=== PATIENT | female | born 1955 | race Caucasian/White ===

== ENCOUNTER 2018-05-20 06:52 | Observation (INO) | payer OTHER ==
[2018-05-20] MEDS ORDERED: ENOXAPARIN SODIUM 40 MG/0.4 ML DISP.SYRIN SQ ONE ×2 (07:05→07:06)
[2018-05-20] MEDS ORDERED: fentaNYL CITRATE/PF 100 MCG/2 ML INJ. ONE ×3 (07:06→10:39)
[2018-05-20] MEDS ORDERED: ROCURONIUM BROMIDE 10 MG/ML 5ML VIAL ONE ×2 (07:06→08:48)
[2018-05-20] MEDS ORDERED: ceFAZolin SODIUM 1 GM VIAL ONE ×2 (07:06→08:48)
[2018-05-20] MEDS ORDERED: MIDAZOLAM HCL 2 MG/2 ML VIAL ONE ×2 (07:06→08:48)
[2018-05-20] MEDS ORDERED: NORMAL SALINE 1,000 ML IV.SOLN IV ONE ×2 (07:06→08:48)
[2018-05-20] MEDS ORDERED: LACTATED RINGERS 1,000 ML IV ONE (07:06)
[2018-05-20] MEDS ORDERED: LACTATED RINGERS 1,000 ML IV.SOLN IV ONE ×5 (07:06→08:48)
[2018-05-20] MEDS ORDERED: LIDOCAINE HCL 1% PF 300MG/30ML VIAL ONE ×2 (07:06→08:48)
[2018-05-20] MEDS ORDERED: PROPOFOL 200 MG/20 ML VIAL IV ONE ×2 (07:06→08:48)
[2018-05-20] MEDS ORDERED: SCOPOLAMINE HYDROBROMIDE 1.5MG/72HR PATCH TD ONE ×2 (07:06)
[2018-05-20] MEDS ORDERED: ONDANSETRON HCL/PF 4 MG/ 2ML VIAL ONE ×2 (07:06→08:48)
[2018-05-20] MEDS ORDERED: DEXAMETHASONE SOD PHOS 4 MG/ML VIAL ONE ×2 (07:06→08:48)
[2018-05-20] MEDS ORDERED: LIDOCAINE HCL 2% PF 100MG/5ML VIAL IJ ONE ×2 (07:06→08:48)
[2018-05-20] MEDS ORDERED: FAMOTIDINE 20 MG/2 ML VIAL ONE ×2 (07:06)
[2018-05-20] MEDS ORDERED: ACETAMINOPHEN 1,000 MG/100 ML INJ IV ONE ×2 (08:26→08:48)
[2018-05-20] MEDS ORDERED: FENTANYL CITRATE/PF 250 MCG/5 ML INJ. ONE (08:48)
[2018-05-20] MEDS ORDERED: SUGAMMADEX SODIUM 200 MG/2 ML VIAL IV ONE (08:48)
[2018-05-20] MEDS ORDERED: BUPIV. HCL 0.5% (5MG/ML)/EPI. (1:200,000) PF 30 ML VIAL IJ ONE (08:48)
[2018-05-20] MEDS ORDERED: SEVOFLURANE 250 ML LIQUID IH ONE (08:48)
[2018-05-20] MEDS ORDERED: ONDANSETRON HCL/PF 4 MG/ 2ML VIAL IVP PRN (11:25)
[2018-05-20] MEDS ORDERED: PROMETHAZINE HCL 25 MG in 0.9 % SODIUM CHLORIDE 50 ML IV PRN (11:25)
[2018-05-20] MEDS ORDERED: MORPHINE SULFATE 2 MG/ML VIAL IVP PRN (11:27)
[2018-05-20 11:59] VITALS: BMI 45.9
[2018-05-20] MEDS: HYDROcodone /APAP 5/325 1 EACH TABLET PO PRN ×2 (13:59→20:46)
[2018-05-20] MEDS: BUSPIRONE HCL 5 MG TABLET PO SCH ×2 (14:00→20:45)
--- NOTE | 2018-05-20 17:14 | History and Physical Report ---
History of Present Illnes - History of Present Illness Reason for Visit: S/P Gastric Band Removal History of Present Illness: Patient is a 62-year-old white female that had the Lap Band done in 2014. She states that she initially lost 60 pounds and then they started having trouble and eventually decided to remove the band. Patient states that she has put all of her weight back on and more. She admits to struggling with her diet and eating as she is suppose to. She is being monitored overnight in observation for treatment of pain, nausea, and making sure that she can tolerate PO meds and fluids. Patient tolerated procedure well with no complications. - Past Medical History Cardiac: HTN, Hyperlipidemia Pulmonary: Sleep Apnea Gastrointestinal: GERD Hepatobiliary: denies: Hep A/B/C Psych: Anxiety, Depression Musculoskeletal: Chronic low back pain Renal/: UTI Endocrine: Diabetes, obesity Grav: 5 Para: 3 Ab: 2 - Past Surgical History Past Surgical History: Cholecystectomy, (x3), Other (lap band 2013) - Past Family History Mother Family History: Cancer, DM, Father Family History: (did not know dad) - Past Social History Smoke: No Alcohol: Rare Drugs: None Lives: With Family - Health Maintenance Health Maintenance: Cholesterol, Influenza Vaccine, Pneumococcal Vaccine, Mammogram Influenza Vaccine: Current for this Influenza Season Pneumonia Vaccine: Yes Resuscitation Status: Resusciation Status Resuscitation Status Full Code - Unable to Obtain History Unable to Obtain: No Review of Systems - Review of Systems Constitutional: negative: Fever, Chills Eyes: negative: pain, vision change ENT: negative: Ear Pain, Nose Pain, Throat Pain Respiratory: SOB with Excertion. negative: Cough, Shortness of Breath Cardiovascular: negative: Chest Pain, Palpitations Gastrointestinal: Abdominal Pain (s/p lap band removal). negative: Nausea Genitourinary: negative: Dysuria Musculoskeletal: Back Pain (chronic) Skin: negative: Rash Neurological: Weakness. negative: Confusion - Medications/Allergies Allergies/Adverse Reactions: Allergies Allergy/AdvReac Type Severity Reaction Status Date / Time sulfamethoxazole Allergy Verified 05/20/18 11:24 [From Bactrim] trimethoprim [From Bactrim] Allergy Verified 05/20/18 11:24 Home Medications: Home Medications Buspirone HCl [Buspar] 15 mg PO TID 05/20/18 Duloxetine HCl [Cymbalta] 60 mg PO BID 05/20/18 Lisinopril [Prinivil] 10 mg PO DAILY 05/20/18 Omeprazole Magnesium [Prilosec] 20 mg PO DAILY 05/20/18 Saxagliptin HCl [Onglyza] 5 mg PO DAILY 05/20/18 Trazodone HCl 150 mg PO HS 05/20/18 Current Inpatient Medications: Current Inpatient Medications Buspirone HCl (Buspar) 15 mg PO TID [facility] Last Admin: 05/20/18 14:00 Dose: 15 mg Duloxetine HCl (Cymbalta) 60 mg PO BID [facility] Promethazine HCl 25 mg/ Sodium (Chloride) 51 mls @ 200 mls/hr IV Q6 PRN PRN Reason: Nausea / Vomiting Stop: 05/24/18 11:24 Lisinopril (Prinivil) 10 mg PO QD [facility] Miscellaneous (Saxagliptin Hcl [Onglyza]) 5 mg PO DAILY [facility] Miscellaneous (Chem Sticks) 1 each MC Q6H [facility] Last Admin: 05/20/18 12:17 Dose: 1 each Morphine Sulfate (Depodur) 2 mg IVP Q4 PRN PRN Reason: Pain 5-7 If UNABLE TO TAKE PO Ondansetron HCl (Zofran 4 Mg/2 Ml) 4 mg IVP Q6H PRN PRN Reason: Nausea / Vomiting Stop: 05/24/18 11:24 Trazodone HCl (Desyrel) 150 mg PO [facility] Exam - Exam Vital Signs: Vital Signs (72 hours) 05/20/18 05/20/18 05/20/18 11:21 11:25 11:35 Temperature 96.9 F L 96.9 F L Pulse Rate [ Left] Pulse Rate [ 75 75 Right] Respiratory 16 16 Rate Blood Pressure [Left Arm] Blood Pressure 110/62 110/62 [Right Arm] O2 Sat by Pulse 96 98 96 Oximetry 05/20/18 05/20/18 05/20/18 11:55 12:23 13:51 Temperature 97.1 F L 97.7 F 97.5 F L Pulse Rate [ 80 92 H Left] Pulse Rate [ 90 Right] Respiratory 18 16 16 Rate Blood Pressure 105/59 109/69 109/69 [Left Arm] Blood Pressure [Right Arm] O2 Sat by Pulse 92 98 90 L Oximetry 05/20/18 15:25 Temperature Pulse Rate [ Left] Pulse Rate [ Right] Respiratory Rate Blood Pressure [Left Arm] Blood Pressure [Right Arm] O2 Sat by Pulse 91 L Oximetry General: Alert, Oriented to Person, Oriented to Place, Oriented to Time, Cooperative, No acute distress HEENT: Atraumatic, PERRLA, Mouth Mucous membr. moist/[place], Nose Mucous membr. moist/[place] Neck: Normal Range of Motion Lungs: Clear to auscultation, Normal air movement, Speaks full Sentences Cardiovascular: Regular rate, Normal S1, Normal S2 Abdomen: Soft, Decreased Bowel Sounds Integumentary: Normal, [place], Warm, Dry, Other (incision drsgs intact/dry) Extremities: No edema, Normal pulses, No tenderness/swelling Neurological: Normal gait, Normal speech, Strength Equal Bilat, Sensation intact Psych/Mental Status: Mental status NL, Mood NL, Appropriate Affect Assessment/Plan - Assessment/Plan (1) S/P gastric surgery Status: Acute Current Visit: Yes Assessment: S/P lap band removal- LCTA, bowel sounds present, SCDs on while in bed, no leg pain/tenderness Plan: Will monitor resp. status and encourage use of incentive spirometer, will monitor for s/sx of DVT and have pt wear SCDs while in bed and encourage frequent ambulation. Will monitor oral intake (2) Morbid obesity due to excess calories Status: Acute Current Visit: Yes Plan: Lap Band removal- monitor diet (3) Obstructive sleep apnea Status: Acute Current Visit: Yes Assessment: Stable with CPAP Plan: Will wear CPAP (4) Hypertension Status: Acute Current Visit: Yes Qualifiers: Hypertension type: essential hypertension Qualified Code(s): I10 - Essential (primary) hypertension Assessment: BP 109/69 will monitor Plan: Will monitor blood pressure (5) Hyperlipidemia Status: Acute Current Visit: Yes Qualifiers: Hyperlipidemia type: mixed hyperlipidemia Qualified Code(s): E78.2 - Mixed hyperlipidemia Assessment: stable on home meds Plan: Will continue home meds (6) Non-insulin dependent type 2 diabetes mellitus Status: Acute Current Visit: Yes Assessment: Blood sugar 142 and will monitor Plan: Will continue on home meds (7) Depression with anxiety Status: Acute Current Visit: Yes Assessment: Stable on home meds Plan: Will continue home meds VTE Assessment - RISK FACTOR SCORE VTE RISK FACTOR SCORES: AGE OVER 60 YEARS, OBESITY, MAJOR SURGERY/ANESTHESIA TIME > 1 HOUR (SCDs while in Bed, frequent ambulation- plan to DC in a.m.)
[2018-05-20] MEDS: DULoxetine HCL 30 MG CAPSULE.DR PO SCH (20:41)
[2018-05-20] MEDS ORDERED: traZODone HCL 50 MG TABLET PO SCH (21:00)
--- NOTE | 2018-05-21 06:50 | Discharge Summary ---
Discharge Summary - Discharge Sumary History of Present Illness: Patient is a 62-year-old white female that had the Lap Band done in 2013. She states that she initially lost 60 pounds and then they started having trouble and eventually decided to remove the band. Patient states that she has put all of her weight back on and more. She admits to struggling with her diet and eating as she is suppose to. She is being monitored overnight in observation for treatment of pain, nausea, and making sure that she can tolerate PO meds and fluids. Patient tolerated procedure well with no complications. Condition at Discharge: Stable Home Medications: Ambulatory Orders Medication Instructions Recorded Buspirone HCl [Buspar] 15 mg PO TID 05/20/18 Duloxetine HCl [Cymbalta] 60 mg PO BID 05/20/18 Lisinopril [Prinivil] 10 mg PO DAILY 05/20/18 Omeprazole Magnesium [Prilosec] 20 mg PO DAILY 05/20/18 Saxagliptin HCl [Onglyza] 5 mg PO DAILY 05/20/18 Trazodone HCl 150 mg PO HS 05/20/18 Consultations this Visit: None Procedures this Visit: Other (s/p lap band removal) Allergies/Adverse Reactions: Allergies Allergy/AdvReac Type Severity Reaction Status Date / Time sulfamethoxazole Allergy Verified 05/20/18 11:24 [From Bactrim] trimethoprim [From Bactrim] Allergy Verified 05/20/18 11:24 Patient Problems: Current Active Problems Problem Status Onset Depression with anxiety Acute Hyperlipidemia Acute Hypertension Acute Morbid obesity due to excess calories Acute Non-insulin dependent type 2 diabetes mellitus Acute Obstructive sleep apnea Acute S/P gastric surgery Acute Discharge Summary: Patient is a 62-year-old female who is s/p lap band removal- she did very good through the night. She did not require any pain or nausea medication through the night. Blood sugar is stable. She is ready to go home- she is already awake and reading a book this morning. She states that her plans are to eventually have the gastric sleeve done at a later date- until then she is going to try to watch what she eats. She is tolerating liquids with no n/v/d. - Final Diagnosis (1) S/P gastric surgery Problems: Incisions sites are covered- dressings are dry and intact- no erythema or redness noted- pt tolerated oral liquids without difficulty Right or Left: Right (2) Morbid obesity due to excess calories Problems: Discussed monitor diet and preparing for future gastric surgery Right or Left: Right (3) Obstructive sleep apnea Problems: Stable with CPAP Right or Left: Right (4) Hypertension Problems: Stable with home meds Right or Left: Right (5) Hyperlipidemia Problems: Stable with home meds Right or Left: Right (6) Non-insulin dependent type 2 diabetes mellitus Problems: Stable on home meds Right or Left: Right (7) Depression with anxiety Problems: Stable on home meds Right or Left: Right
[2018-05-21] MEDS: DULoxetine HCL 30 MG CAPSULE.DR PO SCH (08:27)
[2018-05-21] MEDS: BUSPIRONE HCL 5 MG TABLET PO SCH (08:27)
[2018-05-21] MEDS ORDERED: LISINOPRIL 5 MG TABLET PO SCH (09:00)
[2018-05-21] MEDS ORDERED: SAXAGLIPTIN HCL 5 MG PO SCH (09:00)
[2018-05-21 11:05] VITALS: BP 110/62
== END 2018-05-21 09:50 | disposition home or self-care (01) ==
LOC: SOUTH 06:52 → UNDOADMOB 11:20 → SOUTH 11:20 → UNDODISOB 05-21 09:50
PROVIDERS: ADMIT Nurse Practitioner Family; ATTEND Nurse Practitioner Family
DX: K95.09 Other complications of gastric band procedure (principal); E66.01 Morbid (severe) obesity due to excess calories; E11.9 Type 2 diabetes mellitus without complications; E78.5 Hyperlipidemia, unspecified; G47.30 Sleep apnea, unspecified
CPT/HCPCS: 43235; 99217; 99218; J0690; J1100; J1650; J2001; J2250; J2405; J2704; J3010; 43774; 43775; A9270-GY; G0378; G0379; J7030; J7120

== ENCOUNTER 2018-08-12 06:19 | Day surgery (SDC) | payer OTHER ==
[2018-08-12] MEDS ORDERED: ENOXAPARIN SODIUM 40 MG/0.4 ML DISP.SYRIN SQ ONE (06:30)
[2018-08-12] MEDS ORDERED: SCOPOLAMINE HYDROBROMIDE 1.5MG/72HR PATCH TD ONE ×2 (06:30→08:48)
[2018-08-12] MEDS ORDERED: FAMOTIDINE 20 MG/2 ML VIAL IV ONE ×2 (06:31→08:48)
[2018-08-12] MEDS ORDERED: SEVOFLURANE 250 ML LIQUID IH ONE (08:48)
[2018-08-12] MEDS ORDERED: BUPIV. HCL 0.25% (2.5MG/ML)/EPI. (1:200,000) PF 30 ML VIAL IJ ONE (08:48)
[2018-08-12] MEDS ORDERED: MIDAZOLAM HCL 2 MG/2 ML VIAL ONE (08:48)
[2018-08-12] MEDS ORDERED: fentaNYL CITRATE/PF 100 MCG/2 ML INJ. ONE ×2 (08:48→09:02)
[2018-08-12] MEDS ORDERED: ROCURONIUM BROMIDE 10 MG/ML 5ML VIAL ONE (08:48)
[2018-08-12] MEDS ORDERED: PHENYLEPHRINE HCL 10 MG/1 ML ONE (08:48)
[2018-08-12] MEDS ORDERED: LIDOCAINE HCL 1% PF 300MG/30ML VIAL ONE (08:48)
[2018-08-12] MEDS ORDERED: ceFAZolin SODIUM 1 GM VIAL ONE (08:48)
[2018-08-12] MEDS ORDERED: PROPOFOL 200 MG/20 ML VIAL IV ONE (08:48)
[2018-08-12] MEDS ORDERED: DEXAMETHASONE SODIUM PHOSPHATE 10 MG/ML VIAL ONE (08:48)
[2018-08-12] MEDS ORDERED: SODIUM CHLORIDE IRRIG SOLUTION 3,000 ML IRRIG.SOLN IR ONE (08:48)
[2018-08-12] MEDS ORDERED: LACTATED RINGERS 1,000 ML IV.SOLN IV ONE ×2 (08:48)
[2018-08-12] MEDS ORDERED: LIDOCAINE HCL 2% PF 100MG/5ML VIAL IJ ONE (08:48)
--- NOTE | 2018-08-16 13:14 | Operative Note ---
PREOPERATIVE DIAGNOSIS: 1. Morbid obesity. 2. Hypertension. 3. Gastroesophageal reflux disease. 4. Sleep apnea. 5. Type 2 diabetes. POSTOPERATIVE DIAGNOSIS: 1. Morbid obesity. 2. Hypertension. 3. Gastroesophageal reflux disease. 4. Sleep apnea. 5. Type 2 diabetes. PROCEDURES PERFORMED: 1. Laparoscopic vertical sleeve gastrectomy. 2. Upper gastrointestinal endoscopy. SURGEON: Everette Gutiérrez M.D. INDICATIONS FOR PROCEDURE: Ms. Shagufta Brown is a 62-year-old female who presented with features of morbid obesity. She was noted to have a weight of 286 pounds with a BMI of 47 with the above-listed comorbidities. The patient was advised laparoscopic vertical sleeve gastrectomy and possible hiatal hernia repair. The patient showed understanding and agreed to proceed. DESCRIPTION OF PROCEDURE: After explaining to the patient in detail and informed consent was obtained, the patient was identified in the preoperative holding area. The patient was transferred to the operating room and was placed in supine position. Sequential compressive devices were placed for DVT prophylaxis. Preoperative antibiotics were given. After induction of anesthesia, the abdomen was prepped and draped in a sterile fashion. Through a left upper quadrant 1-cm incision, and using Optiview technique, the peritoneal cavity was entered and pneumoperitoneum was created. Thereafter, under direct vision, another 5-mm trocar was placed in the left midabdomen and another 15-mm trocar was placed in the right midabdomen. Through a 1-cm incision in the right subcostal region, another 5-mm trocar was placed. Through a 1-cm incision in the epigastrium, a Teresita retractor was introduced and the left lobe of the liver was retracted. On initial inspection, the patient was noted to have no evidence of hiatal hernia. I took down the gastroepiploic vessels using a LigaSure. This was continued superiorly. The short gastric vessels were taken down. The gastrophrenic ligament was divided and the Angle of His was mobilized. The posterior attachments of the stomach on the pancreas were released. Distally, the gastroepiploic vessels were taken down up to about 4 cm proximal to the pylorus. At this point, a #38 Polish Hurst Bougie was introduced into the stomach and was placed along the lesser curve. The stomach was then divided in a vertical fashion with multiple Endo [employer] Black Load Staplers. The first firing was directed outwards towards the greater curvature. Subsequent firings were directed towards the Angle of His to create a loose sleeve around the #38 Polish bougie. The bougie was then removed and an upper GI endoscopy was performed at this point. The scope was introduced into the esophagus and was gradually advanced into the stomach. The GE junction appeared normal. The sleeve size appeared normal. No evidence of any active bleeding was noted. The stomach was insufflated with air and irrigation of fluid along the staple line revealed no evidence of air leak. The stomach was then suctioned out and the scope was removed. Absolute hemostasis was ensured. Thorough saline irrigation was given. The Teresita retractor was removed. Approximately 10 mL of a lidocaine- Marcaine mix was instilled under the left hemidiaphragm. The sleeve gastrectomy specimen was removed. The abdomen was then deflated. The incisions were closed with 4-0 Monocryl. Dermabond was applied. Approximately 10 mL of a lidocaine- Marcaine mix was injected into all the incisions. The patient was awakened from anesthesia and was transferred to the recovery room in stable condition. ESTIMATED BLOOD LOSS: Approximately 10 mL. CONDITION OF THE PATIENT: Stable. FLUIDS GIVEN: Per Anesthesia note. SPECIMEN(S) SENT: Sleeve gastrectomy specimen. COMPLICATIONS: None. ANESTHESIA: General. EDILMA
== END 2018-08-12 09:44 | disposition other institution (70) ==
LOC: OPSURG 06:19
PROVIDERS: ATTEND Surgery
DX: E66.01 Morbid (severe) obesity due to excess calories (principal); Z68.42 Body mass index [BMI] 45.0-49.9, adult; E11.9 Type 2 diabetes mellitus without complications; G47.30 Sleep apnea, unspecified; K21.9 Gastro-esophageal reflux disease without esophagitis
CPT/HCPCS: 43235; 43775; 88305; A9270; J0690; J1650; J2001; J2250; J2370; J2704; J3010; J7120

== ENCOUNTER 2018-08-12 09:45 | Inpatient (IN) | payer OTHER ==
[2018-08-12] MEDS ORDERED: MORPHINE SULFATE 10MG/0.5ML ORAL SOLN UD CUP PO PRN (10:01)
[2018-08-12] MEDS ORDERED: MORPHINE SULFATE 4 MG/ML VIAL IVP PRN (10:01)
[2018-08-12] MEDS ORDERED: PROMETHAZINE HCL 25 MG in 0.9 % SODIUM CHLORIDE 50 ML IV PRN (10:01)
--- NOTE | 2018-08-12 10:14 | History and Physical Report ---
History of Present Illnes - History of Present Illness Reason for Visit: S/P GASTRIC SLEEVE PROCEDURE History of Present Illness: Patient is a 62-year-old female who has tried multiple diets and exercise programs with no success. She has always struggled with her weight. She has tried many diet plans, diet pills, and walking and has not been able to keep it off. She had the lap band placed in 2013- had some weight loss but gained it back. She had the band removed 05/20/18. Patient and surgeon decided to proceed with gastric sleeve procedure. Procedure went well- patient will be admitted and monitored s/p surgical intervention. Patient has been on a liquid diet prior to surgery so she is a risk of dehydration s/p surgery. She will be admitted for IV hydration to help hydrate patient until she is able to tolerate a sufficient oral intake, will treat pain with IV medication until patient is able to tolerate oral meds, IV antiemetics to help reduce episodes of nausea and/or vomiting. Patient will be monitored closely using telemetry d/t h/o hypertension and we will check blood sugars frequently due to diabetes. - Past Medical History Cardiac: HTN, Hyperlipidemia Pulmonary: Sleep Apnea (with CPAP) Gastrointestinal: GERD (Controlled) Psych: Anxiety, Depression Musculoskeletal: Chronic low back pain Renal/: UTI Endocrine: Diabetes, obesity Grav: 5 Para: 3 Ab: 2 - Past Surgical History Past Surgical History: Cholecystectomy, (x3), Other (lap band 2013 and removed 06/05) - Past Family History Mother Family History: Cancer, DM, Father Family History: (did not know dad) - Past Social History Smoke: No Alcohol: Rare Drugs: None Lives: With Family - Health Maintenance Health Maintenance: Cholesterol, Influenza Vaccine, Pneumococcal Vaccine, Mammogram Influenza Vaccine: Current for this Influenza Season Pneumonia Vaccine: Yes Resuscitation Status: Resusciation Status Resuscitation Status Full Code - Unable to Obtain History Unable to Obtain: No Review of Systems - Review of Systems Constitutional: Weakness. negative: Fever, Chills Eyes: negative: conjunctivae inflammation ENT: negative: Ear Pain, Nose Congestion, Throat Swelling Respiratory: negative: Cough, Shortness of Breath Cardiovascular: negative: Chest Pain, Light Headedness Gastrointestinal: Nausea, Abdominal Pain (pain 8/10). negative: Vomiting Genitourinary: negative: Dysuria Musculoskeletal: Back Pain Skin: Other (incisions x 5 to abdomen). negative: Rash Neurological: Weakness. negative: Confusion - Medications/Allergies Allergies/Adverse Reactions: Allergies Allergy/AdvReac Type Severity Reaction Status Date / Time sulfamethoxazole Allergy Verified 05/20/18 11:24 [From Bactrim] trimethoprim [From Bactrim] Allergy Verified 05/20/18 11:24 Current Inpatient Medications: Current Inpatient Medications Promethazine HCl 25 mg/ Sodium (Chloride) 51 mls @ 200 mls/hr IV Q6 PRN PRN Reason: Nausea / Vomiting Stop: 08/16/18 10:00 Ketorolac Tromethamine (Toradol) 30 mg IV Q6H PRN PRN Reason: For Mild Pain Stop: 08/16/18 10:00 Ondansetron HCl (Zofran) 4 mg IVP Q6H PRN PRN Reason: Nausea / Vomiting Stop: 08/16/18 10:00 Exam - Exam General: Alert, Oriented to Person, Oriented to Place, Oriented to Time, Cooperative, Moderate distress, Morbidly Obese HEENT: PERRLA, Other (mucous membranes are dry) Neck: Normal Range of Motion Carotids: No bruit Lungs: Clear to auscultation, Normal air movement Cardiovascular: Regular rate, Normal S1, Normal S2 Peripheral Edema: None Peripheral Pulses: 2+ Abdomen: Soft, Decreased Bowel Sounds Integumentary: Warm, Dry, Pale, Other (Dressings to abdomen x5 without drainage) Extremities: No edema, Normal pulses, No tenderness/swelling Neurological: Normal speech, Strength Equal Bilat, Sensation intact, Generalized Weakness Psych/Mental Status: Mental status NL, Mood NL, Appropriate Affect, Intact Judgment Assessment/Plan - Assessment/Plan (1) Depression with anxiety Status: Acute Current Visit: No Plan: Will hold medications today and may implement tomorrow if patient is doing well without vomiting (2) Hyperlipidemia Status: Acute Current Visit: No Qualifiers: Hyperlipidemia type: mixed hyperlipidemia Qualified Code(s): E78.2 - Mixed hyperlipidemia Plan: Will hold medications today and may implement tomorrow if patient is doing well without vomiting (3) Hypertension Status: Acute Current Visit: No Qualifiers: Hypertension type: essential hypertension Qualified Code(s): I10 - Essential (primary) hypertension Plan: Will hold medications and monitor blood pressure- may need to start home meds but we will monitor (4) Morbid obesity due to excess calories Status: Acute Current Visit: No Plan: Patient is s/p gastric sleeve. We will assist patient with implementing gastric sleeve diet protocol starting with ice chips and clear liquids and advancing as tolerated. (5) Non-insulin dependent type 2 diabetes mellitus Status: Acute Current Visit: No Plan: Will hold any diabetic medications- we will check blood sugar every 6 hours; will consider SSI if needed (6) Obstructive sleep apnea Status: Acute Current Visit: No Plan: Will use CPAP and monitor patient closely overnight (7) S/P gastric surgery Status: Acute Current Visit: No Plan: Plan to admit for IV hydration, IV pain meds, and IV antiemetics. Lovenox and SCDs to help prevent DVTs, IS and frequent ambulation will be implemented. Start ice chips and advance diet as tolerated. (8) Chronic back pain Status: Acute Current Visit: Yes Plan: May implement a K-Pad VTE Assessment - RISK FACTOR SCORE VTE RISK FACTOR SCORES: AGE OVER 60 YEARS, OBESITY, MAJOR SURGERY/ANESTHESIA TIME > 1 HOUR - RISK VTE HIGH RISK: SCORE OF 3-4 (RISK PROXIMAL DVT 4-8%) PROPHYLAXIS NEEDED (will start lovenox daily, frequent ambulation, Incentive spirometry, SCDs while in bed)
[2018-08-12 10:17] VITALS: BMI 44.5
[2018-08-12] MEDS: 0.9 % SODIUM CHLORIDE 1,000 ML IV SCH ×2 (10:30→16:46)
[2018-08-12] MEDS: ONDANSETRON HCL/PF 4 MG/ 2ML VIAL IVP PRN ×2 (11:12→20:45)
[2018-08-12] MEDS: KETOROLAC TROMETHAMINE 30 MG/1ML VIAL IV PRN ×2 (11:13→22:51)
[2018-08-12] MEDS: CEFAZOLIN SODIUM/DEXTROSE,ISO 1 GM/50 ML PIGGYBACK IV SCH (15:36)
[2018-08-12] MEDS: FAMOTIDINE 20 MG/2 ML VIAL IVP SCH (20:50)
[2018-08-12] MEDS: traZODone HCL 50 MG TABLET PO SCH (22:56)
[2018-08-13] MEDS: CEFAZOLIN SODIUM/DEXTROSE,ISO 1 GM/50 ML PIGGYBACK IV SCH (00:05)
[2018-08-13] MEDS: KETOROLAC TROMETHAMINE 30 MG/1ML VIAL IV PRN ×2 (03:39→12:29)
[2018-08-13] MEDS: 0.9 % SODIUM CHLORIDE 1,000 ML IV SCH ×2 (03:42→06:27)
[2018-08-13 06:17] LABS: BASOPHILS % 0.5 (0.0-1.5); EOSINOPHILS % 0.9 % (0.0-6.8); MEAN CORPUSCULAR HEMOGLOBIN 28.4 pg (28.0-34.0); MONOCYTES % 5.9 % (0.0-11.0); NEUTROPHILS # 7.5 # k/uL (1.4-7.7)
--- NOTE | 2018-08-13 07:23 | Inpatient Progress Note ---
Subjective - Required Recertification Statement I anticipate X number of days because-include discharge plan: 1 - Review of Systems Events since last encounter: Patient is doing very well- still having some nausea and abdominal discomfort but states it is tolerable- she c/o some back pain- will get K-pad ordered. She is tolerating oral fluids well- will continue IVF until patient is able to tolerate adequate oral intake. She has been up walking in the halls, wearing SCDs while in bed and using incentive spirometry. She has been receiving pain and nausea medications. General: Fatigue HEENT: Denies: Head Aches, Dysphasia, Sore Throat Pulmonary: Denies: Dyspnea, Cough Cardiovascular: Denies: Chest Pain, Light Headedness Gastrointestinal: Nausea, Abdominal Pain. Denies: Vomiting Genitourinary: Denies: Dysuria Musculoskeletal: Back Pain Neurological: Weakness Objective - Exam Vitals and I&O: Vital Signs Temp 97.3 F L 08/13/18 05:59 Pulse 86 08/13/18 05:59 Resp 20 08/13/18 05:59 BP 115/67 08/13/18 05:59 Pulse Ox 96 08/13/18 05:59 Intake & Output 08/12/18 08/12/18 08/13/18 11:59 23:59 11:59 Intake Total 0 600 630 Output Total 900 Balance 0 -300 630 Weight 125.191 kg Intake: IV 300 600 Right Wrist 300 600 Oral 0 300 30 Output: Urine 900 Other: Voiding Method Toilet Toilet # Voids 1 # Bowel Movements 0 General: Alert, Oriented to Person, Oriented to Place, Oriented to Time, Cooperative, Mild distress, Morbidly Obese HEENT: PERRLA, Mouth Mucous membr. moist/[place], Nose Mucous membr. moist/[place] Neck: No JVD, +2 carotid pulse wo bruit Lungs: Clear to auscultation, Normal air movement, Speaks full Sentences Cardiovascular: Regular rate, Normal S1, Normal S2 Abdomen: Soft, Decreased Bowel Sounds Extremities: No edema, Normal pulses, No tenderness/swelling Skin: [place], Warm, Dry, Other (incision sites x 5- dry/intact) Neurological: Normal gait, Normal speech, Strength Equal Bilat, Sensation intact Psych/Mental Status: Mental status NL, Mood NL, Appropriate Affect, Intact Judgment - Results Results: Laboratory Results WBC 10.40 K/ul (4.00-12.00) 03/29/19 05:35 RBC 4.15 M/ul (3.90-5.20) 08/13/18 05:35 Hgb 11.8 g/dL (12.0-16.0) L 08/13/18 05:35 Hct 35.5 % (34.5-46.5) 08/13/18 05:35 MCV 86.0 fl (80.0-100.0) 08/13/18 05:35 MCH 28.4 pg (28.0-34.0) 08/13/18 05:35 MCHC 33.2 g/dL (30.0-36.0) 08/13/18 05:35 RDW 13.7 % (11.3-14.3) 08/13/18 05:35 Plt Count 294 K/mm3 (130-400) 08/13/18 05:35 Neut % (Auto) 72.1 % (39.0-79.0) 08/13/18 05:35 Lymph % (Auto) 20.6 % (16.0-50.0) 08/13/18 05:35 [place] % (Auto) 5.9 % (0.0-11.0) 08/13/18 05:35 Eos % (Auto) 0.9 % (0.0-6.8) 08/13/18 05:35 Baso % (Auto) 0.5 (0.0-1.5) 08/13/18 05:35 Neut # (Auto) 7.5 # k/uL (1.4-7.7) 08/13/18 05:35 Lymph # (Auto) 2.2 # k/uL (0.6-4.0) 08/13/18 05:35 [place]eves # (Auto) 0.6 # k/uL (0.0-0.9) 08/13/18 05:35 Eos # (Auto) 0.1 # k/uL (0.0-0.6) 08/13/18 05:35 Baso # (Auto) 0.1 # k/uL (0.0-0.5) 08/13/18 05:35 Assessment/Plan - Assessment/Plan (1) Depression with anxiety Status: Acute Current Visit: No Assessment: Stable (2) Hyperlipidemia Status: Acute Current Visit: No Qualifiers: Hyperlipidemia type: mixed hyperlipidemia Qualified Code(s): E78.2 - Mixed hyperlipidemia Assessment: Stable (3) Hypertension Status: Acute Current Visit: No Qualifiers: Hypertension type: essential hypertension Qualified Code(s): I10 - Essential (primary) hypertension Assessment: Blood pressure have been stable Plan: Continue to monitor blood pressures- will hold BP meds (4) Morbid obesity due to excess calories Status: Acute Current Visit: No Assessment: Continuing with bariatric diet- patient having nausea no vomiting Plan: Continuing with bariatric diet- still having nausea (5) Non-insulin dependent type 2 diabetes mellitus Status: Acute Current Visit: No Assessment: Blood sugars <140 appear to be stabilizing Plan: Continue to hold diabetic meds and continue to check blood sugars every 6 hours (6) Obstructive sleep apnea Status: Acute Current Visit: No Assessment: Doing well with CPAP Plan: Continue CPAP (7) S/P gastric surgery Status: Acute Current Visit: No Assessment: Incision without redness, dressing sites are dry and intact, positive bowel sounds, minimal discomfort, belching and flatus, no extremity pain or edema, still having persistent nausea Plan: Will continue with IVF due to potential dehydration, use of IV antiemetic, IV Pepcid, frequent ambulation, frequent incentive spirometer use, SCDs while in bed, advance diet per bariatric stage 1 (8) Chronic back pain Status: Acute Current Visit: Yes Assessment: c/o low back pain- will order K-Pad Plan: K-Pad ordered
[2018-08-13] MEDS: ENOXAPARIN SODIUM 40 MG/0.4 ML DISP.SYRIN SQ SCH (08:42)
[2018-08-13] MEDS: FAMOTIDINE 20 MG/2 ML VIAL IVP SCH ×2 (08:42→22:05)
[2018-08-13] MEDS: HYDROCODON-ACETAMIN 7.5-325/15ML SOLN UD CUP PO PRN ×3 (08:44→22:03)
[2018-08-13] MEDS: traZODone HCL 50 MG TABLET PO SCH (22:03)
--- NOTE | 2018-08-14 07:02 | Discharge Summary ---
Discharge Summary - Discharge [facility] Admission Date: 08/12/18 Discharge Date: 08/14/18 History of Present Illness: Patient is a 62-year-old female who has tried multiple diets and exercise programs with no success. She has always struggled with her weight. She has tried many diet plans, diet pills, and walking and has not been able to keep it off. She had the lap band placed in 2013- had some weight loss but gained it back. She had the band removed 05/20/18. Patient and surgeon decided to proceed with gastric sleeve procedure. Procedure went well- patient will be admitted and monitored s/p surgical intervention. Patient has been on a liquid diet prior to surgery so she is a risk of dehydration s/p surgery. She will be admitted for IV hydration to help hydrate patient until she is able to tolerate a sufficient oral intake, will treat pain with IV medication until patient is able to tolerate oral meds, IV antiemetics to help reduce episodes of nausea and/or vomiting. Patient will be monitored closely using telemetry d/t h/o hypertension and we will check blood sugars frequently due to diabetes. Condition at Discharge: Stable Home Medications: Ambulatory Orders Medication Instructions Recorded Buspirone HCl [Buspar] 7.5 mg PO TID 05/20/18 Duloxetine HCl [Cymbalta] 60 mg PO BID 05/20/18 Lisinopril [Prinivil] 10 mg PO DAILY 05/20/18 Omeprazole Magnesium [Prilosec] 20 mg PO DAILY 05/20/18 Saxagliptin HCl [Onglyza] 5 mg PO DAILY 05/20/18 Trazodone HCl 150 mg PO HS 05/20/18 Consultations this Visit: None Procedures this Visit: Other (S/P gastric sleeve procedure) Allergies/Adverse Reactions: Allergies Allergy/AdvReac Type Severity Reaction Status Date / Time sulfamethoxazole Allergy Verified 05/20/18 11:24 [From Bactrim] trimethoprim [From Bactrim] Allergy Verified 05/20/18 11:24 Patient Problems: Current Active Problems Problem Status Onset Chronic back pain Acute Discharge Summary: Patient is a 62-year-old female that underwent the gastric sleeve procedure and has done well. She has been very cooperative with her care by ambulating frequently, using her incentive spirometer, and wearing her SCDs while in bed. She has been compliant with her diet during hospitalization. She is having minimal discomfort at this time and minimal nausea- she has is passing gas and belching. She is aware of discharge instructions and what she can and cannot do post surgical- she is aware of the strict diet she must follow to decrease discomfort and have success after procedure. She has family support and significant other will be taking her home- medications written by surgeon given to patient. She feels ready to go home. Hospital Course: Patient received pain medications, antiemetics, and IVF and was transitioned to oral. She has been up ambulating and using incentive spirometer. - Final Diagnosis (1) Depression with anxiety Problems: Stable Right or Left: Right (2) Hyperlipidemia Problems: Stable Right or Left: Right (3) Hypertension Problems: Will hold blood pressure medications- blood pressures have been stable Right or Left: Right (4) Morbid obesity due to excess calories Problems: Continue with bariatric sleeve diet Right or Left: Right (5) Non-insulin dependent type 2 diabetes mellitus Problems: Will hold diabetic medications- blood sugars are stable Right or Left: Right (6) Obstructive sleep apnea Problems: Continue with CPAP machine Right or Left: Right (7) S/P gastric surgery Problems: Incision without redness or drainage, positive bowel sounds, minimal discomfort, belching and flatus, no extremity pain or edema Right or Left: Right (8) Chronic back pain Problems: Stable Right or Left: Right
[2018-08-14] MEDS ORDERED: ONDANSETRON HCL 4 MG TAB.RAPDIS PO PRN (07:54)
[2018-08-14] MEDS: FAMOTIDINE 20 MG/2 ML VIAL IVP SCH (08:15)
[2018-08-14] MEDS ORDERED: ONDANSETRON HCL 4 MG TAB.RAPDIS ONE (08:22)
[2018-08-14] MEDS: ENOXAPARIN SODIUM 40 MG/0.4 ML DISP.SYRIN SQ SCH (08:30)
[2018-08-14] MEDS: HYDROCODON-ACETAMIN 7.5-325/15ML SOLN UD CUP PO PRN (08:30)
[2018-08-14 09:57] VITALS: BP 142/80
== END 2018-08-14 09:40 | disposition home or self-care (01) | DRG 641 ==
LOC: SOUTH 09:45
PROVIDERS: ADMIT Nurse Practitioner Family; ATTEND Nurse Practitioner Family
DX: E66.01 Morbid (severe) obesity due to excess calories (principal); E11.9 Type 2 diabetes mellitus without complications; G89.18 Other acute postprocedural pain; R11.0 Nausea; G47.30 Sleep apnea, unspecified; E78.2 Mixed hyperlipidemia; I10 Essential (primary) hypertension; Z99.89 Dependence on other enabling machines and devices
CPT/HCPCS: 85025; 99222; 99231; 99238; J1650; J1885; J2405; A9270; A9270-GY; J7030